=== PATIENT | male | born 1930 | race African-American/Black ===

== ENCOUNTER 2017-01-28 09:40 | Emergency (ER) | payer OTHER ==
[2017-01-28 09:47] VITALS: BP 148/71; PULSE 81; TEMP 98.8; BMI 20.5
--- NOTE | 2017-01-28 11:30 | PDOC ---
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 Patient reports on 12/23/2016 he fell onto right shoulder has been having pain to shoulder since. Unable to sleep last night because of pain. Patient has full use of his arm, uses a walker to walk and is able to manipulate the walker. There is no deformity, no decreased range of motion. There is pain with range of motion. Past History - Past Medical History Allergies/Adverse Reactions: Allergies Allergy/AdvReac Type Severity Reaction Status Date / Time No Known Allergies Allergy Verified 01/28/17 09:47 Home Medications: Ambulatory Orders Amlodipine Besylate [Norvasc -] 10 mg PO DAILY 02/24/14 Lisinopril/Hydrochlorothiazide [Lisinopril-Hctz 20-12.5 mg Tab] 1 each PO DAILY 02/24/14 Metformin HCl 850 mg PO TID 02/24/14 Potassium Chloride 10 meq PO DAILY 02/24/14 Tamsulosin HCl [Flomax] 0.4 mg PO DAILY 02/24/14 Zolpidem Tartrate 5 mg PO HS PRN 02/24/14 Diabetes: Yes HTN: Yes Hypercholesterolemia: Yes Suicide Attempt (Hx): No - Psycho/Social/Smoking Cessation Hx Anxiety: No Suicidal Ideation: No Smoking Status: Yes Smoking History: Never smoked Number of Cigarettes Smoked Daily: 0 Hx Alcohol Use: No Drug/Substance Use Hx: No Substance Use Type: None Hx Substance Use Treatment: No *Physical Exam - Vital Signs Last Vital Signs Temp Pulse Resp BP Pulse Ox 98.8 F 81 20 148/71 95 01/28/17 09:43 01/28/17 09:43 01/28/17 09:43 01/28/17 09:43 01/28/17 09:43 ED Treatment Course - RADIOLOGY Radiology Studies Ordered: Category Date Time Status CLAVICLE-RIGHT SIDE [RAD] Stat Radiology 01/28/17 10:40 Completed HUMERUS-RIGHT [RAD] Stat Radiology 01/28/17 10:40 Completed SHOULDER-RIGHT [RAD] Stat Radiology 01/28/17 10:40 Completed Medical Decision Making - Medical Decision Making 01/28/17 11:33 A/P: Patient here for evaluation of right shoulder pain reports falling December 23 , after initial assessment home health aid came to bedside, she states the patient had the pain prior to this incident and was under the care of his doctor who gave him Naprosyn. Patient states he still has pain with the Naprosyn. Was told to follow-up with orthopedics has not made an appointment. X -ray demonstrates no acute fracture dislocation, clavicle is intact. Called Dr. Chow Spoke to Julia the multimedia production assistant. Patient has appointment tomorrow at 2 PM to follow-up and will be referred to orthopedics and appointment will be set up. Patient to continue taking Naprosyn. I discussed the physical exam findings, ancillary test results and final diagnoses with the patient. I answered all of the patient's questions. The patient was satisfied with the care received and felt comfortable with the discharge plan and treatment plan. The patient will call to arrange follow-up and will return to the Emergency Department with any new, persistent or worsening symptoms. *DC/Admit/Observation/Transfer Diagnosis at time of Disposition: Chronic right shoulder pain - Discharge Dispostion Disposition: HOME Condition at time of disposition: Stable Admit: No - Referrals Referrals: Melissa Chow MD [Primary Care Provider] - (2 pm tomorrow) - Patient Instructions Printed Discharge Instructions: DI for Shoulder Pain
== END 2017-01-28 12:08 | disposition home or self-care (01) ==
LOC: JERFT 09:40
DX: M25.511 Pain in right shoulder (principal); G89.29 Other chronic pain; I10 Essential (primary) hypertension; E11.9 Type 2 diabetes mellitus without complications; Z79.84 Long term (current) use of oral hypoglycemic drugs; E78.00 Pure hypercholesterolemia, unspecified
CPT/HCPCS: 73000-TC-RT; 73030-TC-RT; 73060-TC-RT; 99281-25

== ENCOUNTER 2017-09-07 09:53 | Emergency (ER) | payer OTHER ==
[2017-09-07 09:57] VITALS: BMI 20.9
--- NOTE | 2017-09-07 10:15 | PDOC ---
History of Present Illness - General Chief Complaint: Pain Stated Complaint: CONSTIPATION Time Seen by Provider: 09/07/17 10:02 History Source: Patient Exam Limitations: No Limitations - History of Present Illness Initial Comments: This is an 86 YOM with h/o chronic constipation x6 months who presents with constipation, no BM for the past 12 days, and lower abdominal pain with obstipation for the past 10 days. He has been taking his normal lactulose without relief, but otherwise denies any additional medications for the symptoms. He has been urinating more frequently than normal for the past several days but denies burning on urination, strange colors/smells to the urine , or h/o prostate problems. He denies passing any gas lately, but also denies nausea, vomiting, rectal liquid or blood passage, fever, chills, or other symptoms. He has never had a colonoscopy and has no GI doctor. Past History - Past Medical History Allergies/Adverse Reactions: Allergies Allergy/AdvReac Type Severity Reaction Status Date / Time No Known Allergies Allergy Verified 09/07/17 09:54 Home Medications: Ambulatory Orders Amlodipine Besylate [Norvasc -] 10 mg PO DAILY 02/24/14 Lisinopril/Hydrochlorothiazide [Lisinopril-Hctz 20-12.5 mg Tab] 1 each PO DAILY 02/24/14 Metformin HCl 500 mg PO BID 02/24/14 Tamsulosin HCl [Flomax] 0.4 mg PO DAILY 02/24/14 Atorvastatin Ca [Lipitor] 40 mg PO HS 09/07/17 Buspirone HCl [Buspar -] 1 tab PO DAILY 09/07/17 Duloxetine HCl [Cymbalta -] 20 mg PO BID 09/07/17 Lactulose [Constulose] 10 gm PO DAILY 09/07/17 COPD: No Diabetes: Yes HTN: Yes Hypercholesterolemia: Yes - Immunization History Immunization Up to Date: Yes - Suicide/Smoking/Psychosocial Hx Smoking Status: Yes Smoking History: Never smoked Number of Cigarettes Smoked Daily: 0 Information on smoking cessation initiated: No Hx Alcohol Use: No Drug/Substance Use Hx: No Substance Use Type: None Hx Substance Use Treatment: No Review of Systems - Review of Systems Able to Perform ROS?: Yes Constitutional: No: Chills, Fever, Unexplained wgt Loss HEENTM: No: Nose Congestion, Throat Pain Respiratory: No: Cough, Shortness of Breath Cardiac (ROS): No: Chest Pain, Palpitations ABD/GI: Yes: Constipated, Other (mild lower abdominal pressure, obstipation). No: Diarrhea, Nausea, Vomiting : No: Burning, Dysuria Musculoskeletal: No: Back Pain, Neck Pain Integumentary: No: Bruising, Rash Neurological: No: Headache, Numbness, Tingling, Weakness, Dizziness Endocrine: No: Unexplained Weight Gain, Unexplained Weight Loss *Physical Exam - Vital Signs Last Vital Signs Temp Pulse Resp BP Pulse Ox 98.1 F 72 18 167/82 100 09/07/17 09:55 09/07/17 09:55 09/07/17 09:55 09/07/17 09:55 09/07/17 09:55 - Physical Exam General Appearance: Yes: Nourished, Appropriately Dressed, Other (alert, oriented, appropriately answering Vincentian-speaking gentleman accompanied at bedside by his family member). No: Apparent Distress HEENT: positive: EOMI, Normal Voice, Hearing Grossly Normal. negative: Scleral Icterus (R), Scleral Icterus (L), Nasal Congestion Neck: positive: Trachea midline, Supple. negative: Tender, Rigid Respiratory/Chest: positive: Lungs Clear, Normal Breath Sounds. negative: Respiratory Distress, Crackles, Rhonchi, Stridor, Wheezing Cardiovascular: positive: Regular Rhythm, Regular Rate, Murmur (2/6 systolic ejection). negative: Edema, JVD Gastrointestinal/Abdominal: positive: Normal Bowel Sounds, Tender (mild diffuse lower abdominal tenderness), Soft. negative: Organomegaly, Pulsatile Mass, Guarding Rectal Exam: positive: other (large amount of hard brown stool in the rectal vault, normal rectal tone) Musculoskeletal: positive: Normal Inspection. negative: Decreased Range of Motion, Vertebral Tenderness Extremity: positive: Normal Capillary Refill, Normal Inspection, Normal Range of Motion. negative: Tender, Cyanosis Integumentary: positive: Normal Color, Dry, Warm. negative: Erythema, Rash, Bruising Neurologic: positive: talent solutions manager II-XII NML intact, Fully Oriented, Alert, Normal Mood/ Affect, Normal Response, Motor Strength 5/5 ED Treatment Course - LABORATORY CBC & Chemistry Diagram: 09/07/17 11:00 09/07/17 11:00 Medical Decision Making - Medical Decision Making Elderly patient p/w constipation. VS: Exam: DDX IBNLT: chronic constipation/rectal impaction, medications (e.g. opioids, psychoactive medications), hypercalcemia, hypothyroidism, malignancy, sigmoid volvulus W/U ordered: Abdominal XR CBCD CMP TSH TX ordered: Fleets enema On rectal disimpaction about 16 oz very hard brown stool is is disimpacted, though more is noted farther into the rectum. Patient attempting to use the restroom to defacate. Laboratory Results - last 24 hr 09/07/17 09/07/17 11:00 11:00 WBC 6.1 RBC 3.58 L Hgb 11.1 L Hct 32.6 L MCV 90.9 MCH 31.1 MCHC 34.1 RDW 14.2 Plt Count 191 MPV 8.0 D Neutrophils % 50.1 Lymphocytes % 34.2 Monocytes % 13.3 H Eosinophils % 2.0 Basophils % 0.4 Sodium 141 Potassium 3.5 Chloride 102 Carbon Dioxide 29 Anion Gap 10 BUN 22 H Creatinine 1.1 Creat Clearance w eGFR > 60 Random Glucose 122 H Calcium 9.5 Total Bilirubin 0.6 AST 16 ALT 10 L D Alkaline Phosphatase 75 Total Protein 7.6 Albumin 3.8 Abd XR: large amount of stool thoughout the colon. Patient remains unable to defacate on his own; MiraLax and Milk of Magnesia given here in the ED. Reassessment: Patient states pain has calmed down, repeat abdominal exam benign. He states he wants to go home. Repeat VS: The patient has gotten significant relief of symptoms with ED medications. Workup is not concerning for emergency-level pathology at this time. The patient is appropriate for discharge with close outpatient follow up. GI referral information is given in discharge packet. The family is comfortable with this plan and will follow up with their PCP in 1- 3 days. They will follow up with their PCP in the next 1-3 days. They agree to return to the ED with any new/worsening symptoms. Return precautions are discussed and they will come back to the ER if necessary. *DC/Admit/Observation/Transfer Diagnosis at time of Disposition: Fecal impaction in rectum Constipation Qualifiers: Constipation type: unspecified constipation type Qualified Code(s): K59.00 - Constipation, unspecified Abdominal pain Qualifiers: Abdominal location: unspecified location Qualified Code(s): R10.9 - Unspecified abdominal pain - Discharge Dispostion Condition at time of disposition: Stable Admit: No - Referrals Referrals: Andrea Luciano MD [Staff Physician] - - Patient Instructions Printed Discharge Instructions: DI for Constipation Additional Instructions: Kirkpatrick visto en la kitty de emergencias por estrenimiento. Hicemos unos laboratorios de ирина, shanika placa del abdomen, y shanika enema para ayudar con el estrenimiento. Pearl sintomas se mejoraron mariel la phu en la kitty de emergencias y creemos que ahora tiene que quedarse en el hospital hoy. Por favor michelle jansen lactulose para el estrenimiento. Dimosla informacion para shanika gastroenterologo en esta paquete. Por favor hace shanika phu con erickson doctor, y tambien hace shanika phu con jansen doctor primario. Michelle jansen lactulose, Milk of Magnesia, y MiraLax. Regrese a la kitty de emergencias si tiene algun sintoma nueva o que empeora, shelly mas estrenimiento que no puede controlar con medicamentos, ирина del recto, o dolor muy paul del abdomen. Print Language: RWANDAN - Post Discharge Activity
[2017-09-07] MEDS ORDERED: SODIUM PHOSPHATE/NA BIPHOS 133 ML ENEMA PR ONE (10:41)
[2017-09-07 11:22] LABS: BASO % 0.4 % (0-2.0); HEMATOCRIT 32.6 % (35.4-49); HEMOGLOBIN 11.1 GM/dL (11.7-16.9); LYMPH % 34.2 % (8-40); MCH 31.1 pg (25.7-33.7); MCHC 34.1 g/dl (32.0-35.9); MEAN CELL VOLUME 90.9 fl (80-96); MONO % 13.3 % (3.8-10.2); NEUT % 50.1 % (42.8-82.8); PLATELET COUNT 191 K/MM3 (134-434); RBC 3.58 M/mm3 (4.00-5.60); RDW 14.2 % (11.9-15.9); WHITE BLOOD COUNT 6.1 K/mm3 (4.0-10.0)
[2017-09-07 11:47] LABS: ALBUMIN 3.8 g/dl (3.4-5.0); ALK PHOS 75 U/L (45-117); ANION GAP 10 (8-16); BILIRUBIN,TOTAL 0.6 mg/dL (0.2-1.0); BLOOD UREA NITROGEN 22 mg/dL (7-18); CALCIUM 9.5 mg/dL (8.5-10.1); CHLORIDE 102 mmol/L (98-107); CO2 29 mmol/L (21-32); CREATININE 1.1 mg/dL (0.7-1.3); GLUCOSE,RANDOM 122 mg/dL (74-106); POTASSIUM 3.5 mmol/L (3.5-5.1); SGOT/AST 16 U/L (15-37); SGPT/ALT 10 U/L (12-78); SODIUM 141 mmol/L (136-145); TOT PROT 7.6 g/dl (6.4-8.2)
[2017-09-07] MEDS ORDERED: POLYETHYLENE GLYCOL 3350 119 GM BTL PO ONE (14:16)
[2017-09-07] MEDS ORDERED: MAGNESIUM HYDROX 2400MG/30ML ORAL SUSPENSION 30 ML CUP PO ONE (14:16)
[2017-09-07 15:04] VITALS: BP 144/71; PULSE 71; TEMP 97.9
--- NOTE | 2017-09-07 15:28 | PDOC ---
Attending Attestation - Resident Resident Name: Jennifer Hodge - ED Attending Attestation I have performed the following: I have examined & evaluated the patient, The case was reviewed & discussed with the resident, I agree w/resident's findings & plan, Exceptions are as noted - Physicial Exam PE: 09/07/17 15:22 awake alert lungs clear bilaterally. heart rrr mild systolic murmur, skin warma nd dry. abd soft NT ND. - Medical Decision Making 09/07/17 15:23 86-year-old chronic constipation here with no BM 12 days. Complaining of mild abdominal discomfort has tried several methods at home with no relief takes lactulose and a regular basis. No prior colonoscopy or GI evaluation On exam the patient is with an abdomen that is soft nontender nondistended rectal exam done per resident with large stool in the vault. Differential includes electrolyte abnormality anemia dehydration constipation/ obstipation. Patient was manually disimpacted and felt much improved following is given an enema as well as magnesium citrate and MiraLAX. Feels much improved we'll discharge home given a referral for GI. Electrolytes and CBC were unremarkable <Steff Scherer - Last Filed: 09/07/17 15:22> - HPI HPI: 09/07/17 15:29 The patient is an 86 year old male with a significant PMH of chronic constipation and arthritis who presents to the emergency department with lower abdominal pain and constipation. He describes his abdominal pain as a pressure like sensation localized in the lower quadrants with no radiation, 8/10 in severity. He reports his last bowel movement was approximately 12 days ago. He notes he is also not passing gas. He reports taking Lactulose to no relief. The patient denies nausea or vomiting. He denies fevers or chills. He states he has not received a colonoscopy. Allergies: NKA <Parag Westbrook - Last Filed: 09/07/17 15:29>
== END 2017-09-07 15:13 | disposition home or self-care (01) ==
LOC: JER 09:53
DX: K59.00 Constipation, unspecified (principal); I10 Essential (primary) hypertension; E78.00 Pure hypercholesterolemia, unspecified; E11.9 Type 2 diabetes mellitus without complications; Z79.84 Long term (current) use of oral hypoglycemic drugs
CPT/HCPCS: 36415; 74019-TC-FY; 80053; 84443; 85025; 99283-25

== ENCOUNTER 2019-07-21 21:04 | Observation (INO) | payer OTHER ==
--- NOTE | 2019-07-21 21:14 | PDOC ---
History of Present Illness - General Stated Complaint: FALL Time Seen by Provider: 07/21/19 21:13 Past History - Past Medical History Allergies/Adverse Reactions: Allergies Allergy/AdvReac Type Severity Reaction Status Date / Time No Known Allergies Allergy Verified 07/21/19 21:17 Home Medications: Ambulatory Orders Amlodipine Besylate [Norvasc -] 10 mg PO DAILY 02/24/14 Lisinopril/Hydrochlorothiazide [Lisinopril-Hctz 20-12.5 mg Tab] 1 each PO DAILY 02/24/14 Tamsulosin HCl [Flomax] 0.4 mg PO DAILY 02/24/14 metFORMIN HCL [Metformin HCl] 500 mg PO BID 02/24/14 Atorvastatin Ca [Lipitor] 40 mg PO HS 09/07/17 Buspirone HCl [Buspar -] 1 tab PO DAILY 09/07/17 Duloxetine HCl [Cymbalta -] 20 mg PO BID 09/07/17 Lactulose [Constulose] 10 gm PO DAILY 09/07/17 Anemia: No Asthma: No Cancer: No Cardiac Disorders: No CVA: No COPD: No DVT: No Dementia: No Diabetes: Yes Dialysis: No GI Disorders: Yes (Chronic constipation) Disorders: No HTN: Yes Hypercholesterolemia: Yes Kidney Stones: No Liver Disease: No Psychiatric Problems: Yes Seizures: No Lung CA: No - Surgical History Abdominal Surgery: No Appendectomy: No Cardiac Surgery: No Cholecystectomy: No Gastric Stapling: No GI Surgery: No Lung Surgery: No Neurologic Surgery: No - Immunization History Immunization Up to Date: Yes - Psycho Social/Smoking Cessation Hx Smoking Status: Yes Smoking History: Never smoked Have you smoked in the past 12 months: No Number of Cigarettes Smoked Daily: 0 Hx Alcohol Use: No Drug/Substance Use Hx: No Substance Use Type: None Hx Substance Use Treatment: No ED Treatment Course - LABORATORY CBC & Chemistry Diagram: 07/21/19 22:30 07/21/19 22:30 Medical Decision Making - Medical Decision Making 07/21/19 22:07 HPI: 88yo Serbian-speaking M hx HTN, HLD, DM, and arthritis not on blood thinners or aspirin BIBA for 1 day of feeling unwell, weak, and lightheadedness, and inability to stand, R shoulder pain, and R hip pain s/p unwitnessed fall vs syncope from standing at ~1800 this PM. Pt lives alone at home, CAREER BASED INTERVENTION COORDINATOR 9a-3p daily, walks without assistance. Per family, pt has baseline mild confusion and memory issues, possibly due to dementia, pt is currently at baseline. CAREER BASED INTERVENTION COORDINATOR this AM said pt was pale and had low BP. Pt states he was in [place] yesterday then felt off since waking up this AM, generally weak and lightheaded/dizzy. At ~1800 this PM he believes he was trying to sit down but missed the chair and collapsed to oscar und, endorses LOC, unknown head injury, can't remember if passed out or slipped/fell, just knows was on ground and couldn't get up. Used [facility] alert and EMS brought him here. Endorses chronic R shoulder pain s/p surgery, but worse shoulder pain since fall. Complains of R hip pain but thinks it started at 4pm today prior to fall, but worse after fall. Denies travel, sick contacts, recent illness, prodromal CP or SOB or palpitations or lightheadedness, seizure-like activity, tongue biting, incontinence, fever, chills, headache, numbness/tingling, focal weakness, vision changes, shortness of breath, cough, chest pain, palpitations, leg swelling, abdominal pain, blood in stool, diarrhea, constipation, nausea, vomiting, dysuria, hematuria, confusion. PCP -Geraldo ROS: Constitutional: Positive for generalized weakness. Negative for chills, fever, diaphoresis. HENT: Negative for sore throat, rhinorrhea, congestion. Eyes: Positive for cataracts and chronic difficulty seeing. Negative for new visual disturbance. Respiratory: Negative for shortness of breath, cough, and wheezing. Cardiovascular: Negative for chest pain, palpitations, and leg swelling. Gastrointestinal: Negative for abdominal pain, blood in stool, constipation, diarrhea, nausea, and vomiting. Genitourinary: Negative for dysuria, flank pain, and hematuria. Musculoskeletal: Positive for R shoulder and hip pain. Negative for myalgias, back pain, and neck pain. Skin: Negative for rash. Neurological: Positive for light-headedness, dizziness, ?syncope. Negative for vertigo, weakness, numbness and headaches. Psychiatric/Behavioral: Positive for dementia. Negative for behavioral problems. PE: Gen: Alert, NAD, comfortable-appearing. HEENT: PERRL, EOMI, MMM, NCAT. No conjunctival pallor. Sclera are non-icteric. CV: Regular rate and rhythm. No murmurs, rubs, or gallops. PULM: No resp distress. CTAB, no wheezes, rales, or rhonchi. ABD: soft, NT/ND, no rebound tenderness or guarding, no CVA tenderness. BACK: No TTP of c/t/l-spine. No step-offs or deformities. MSK: No bony deformities. 2+ pulses in all extremities. Pelvis stable and intact. +TTP R hip. +TTP R shoulder. Slightly limited ROM in R shoulder and R hip 2/2 pain. NEURO: AAOx2 (name and hospital only). Doesn't remember event exactly and has some difficulty answering questions and recalling things (baseline per family; presumed dementia). PERRL. CN 2-12 intact. 5/5 strength in all extremities. Sensation to light touch intact in all extremities. No pronator drift. No abnormal nystagmus. EXTREMITIES: No cyanosis. No clubbing. No edema. No calf tenderness. PSYCH: Normal mood and thought pattern. SKIN: Warm and dry. Normal capillary refill. No rashes. No jaundice. MDM: 88yo Serbian-speaking M hx HTN, HLD, DM, and arthritis not on blood thinners or aspirin BIBA for 1 day of feeling unwell, weak, and lightheadedness, and inability to stand, R shoulder pain, and R hip pain s/p unwitnessed fall vs syncope from standing at ~1800 this PM. Hemodynamically stable, afebrile, AAOx2 (name and hospital) and some confusion/dementia but otherwise neurologically intact, +R shoulder and R hip TTP with slight limited ROM in R shoulder and R hip. Ddx: syncope vs mechanical fall vs seizure. Etiology of syncope or seizure ddx includes SAH/ICH, stroke (low concern due to lack of focal neuro deficits), ACS/HI, arrhythmia, thyroid pathology, CHF, infection (UTI, PNA), metabolic derangement, anemia, malignancy. Due to fall and pain to R shoulder and hip, also consider fractures or dislocations - image head, c-spine, shoulder, hip, pelvis, and chest. -radiation monitor -EKG -CXR, XR R shoulder, XR R hip and pelvis -CTH and c-spine -CBC,CMP,Coags,Mg,Phos,Cardiac profile,TSH,UA/UC,T&S,BNP -Pain management -Dispo: pending workup and reassessment, likely admit tele obs syncope 07/21/19 23:17 EKG reviewed: sinus rhythm with 1st degree AV block, 65bpm, RBBB, SD interval 210ms, QTc 434ms, no e/o acute ischemia CXR reviewed: no acute pathology XR R hip and pelvis reviewed: no acute pathology XR R shoulder reviewed: no acute pathology 07/21/19 23:27 Labs reviewed. Notable for Mg 1.7, BUN 26.7, trop neg, TSH 4.65 -Free T3, free T4 -1g Mg -IVF CBC,CMP WBC 9.4 K/mm3 (4.0-10.0) 07/21/19 22:30 RBC 4.25 M/mm3 (4.00-5.60) 07/21/19 22:30 Hgb 12.5 GM/dL (11.7-16.9) 07/21/19 22:30 Hct 38.1 % (35.4-49) D 07/21/19 22:30 MCV 89.5 fl (80-96) 07/21/19 22:30 MCH 29.4 pg (25.7-33.7) 07/21/19 22:30 MCHC 32.8 g/dl (32.0-35.9) 07/21/19 22:30 RDW 16.3 % (11.9-15.9) H 07/21/19 22:30 Plt Count 259 K/MM3 (134-434) D 07/21/19 22:30 MPV 8.9 fl (7.5-11.1) D 07/21/19 22:30 Absolute Neuts (auto) 5.8 K/mm3 (1.5-8.0) 07/21/19 22:30 Neutrophils % 62.5 % (42.8-82.8) D 07/21/19 22:30 Lymphocytes % 26.3 % (8-40) D 07/21/19 22:30 Monocytes % 9.2 % (3.8-10.2) 07/21/19 22:30 Eosinophils % 1.8 % (0-4.5) 03/05/20 22:30 Basophils % 0.2 % (0-2.0) 07/21/19 22:30 Nucleated RBC % 0 % (0-0) 07/21/19 22:30 Sodium 140 mmol/L (136-145) 07/21/19 22:30 Potassium 3.6 mmol/L (3.5-5.1) 07/21/19 22:30 Chloride 105 mmol/L (98-107) 07/21/19 22:30 Carbon Dioxide 28 mmol/L (21-32) 07/21/19 22:30 Anion Gap 7 MMOL/L (8-16) L 07/21/19 22:30 BUN 26.7 mg/dL (7-18) H 07/21/19 22:30 Creatinine 1.3 mg/dL (0.55-1.3) 07/21/19 22:30 Est GFR (CKD-EPI)AfAm 56.07 07/21/19 22:30 Est GFR (CKD-EPI)NonAf 48.38 07/21/19 22:30 POC Glucometer 182 UNITS (80-120) 07/21/19 21:21 Random Glucose 177 mg/dL (74-106) H 07/21/19 22:30 Calcium 10.0 mg/dL (8.5-10.1) 07/21/19 22:30 Phosphorus 2.2 mg/dL (2.5-4.9) L 07/21/19 22:30 Magnesium 1.7 mg/dL (1.8-2.4) L 07/21/19 22:30 Total Bilirubin 0.6 mg/dL (0.2-1) 07/21/19 22:30 AST 17 U/L (15-37) 07/21/19 22:30 ALT 16 U/L (13-61) 07/21/19 22:30 Alkaline Phosphatase 125 U/L (45-117) H 07/21/19 22:30 Creatine Kinase 124 U/L (26-308) 07/21/19 22:30 Troponin I 0.02 ng/ml (0.00-0.05) 07/21/19 22:30 B-Natriuretic Peptide 141.5 pg/ml (5-450) 07/21/19 22:30 Total Protein 9.3 g/dl (6.4-8.2) H 07/21/19 22:30 Albumin 4.2 g/dl (3.4-5.0) 07/21/19 22:30 TSH 4.65 uIU/ml (0.358-3.74) H D 07/21/19 22:30 07/22/19 00:[address] Pt signed out to Dr Garcia. Pending CT reads, admit tele obs syncope under hospitalist. Discharge - Discharge Information Problems reviewed: Yes Clinical Impression/Diagnosis: Syncope and collapse Condition: Stable - Admission Yes - Follow up/Referral Referrals: Melissa Chow MD [Primary Care Provider] - - Patient Discharge Instructions - Post Discharge Activity
[2019-07-21 21:21] VITALS: BMI 24.7
[2019-07-21 22:47] LABS: BASO % 0.2 % (0-2.0); EOS % 1.8 % (0-4.5); HEMATOCRIT 38.1 % (35.4-49); HEMOGLOBIN 12.5 GM/dL (11.7-16.9); LYMPH % 26.3 % (8-40); MCH 29.4 pg (25.7-33.7); MCHC 32.8 g/dl (32.0-35.9); MEAN CELL VOLUME 89.5 fl (80-96); MEAN PLT VOLUME 8.9 fl (7.5-11.1); MONO % 9.2 % (3.8-10.2); NEUT % 62.5 % (42.8-82.8); PLATELET COUNT 259 K/MM3 (134-434); RBC 4.25 M/mm3 (4.00-5.60); RDW 16.3 % (11.9-15.9); WHITE BLOOD COUNT 9.4 K/mm3 (4.0-10.0)
--- NOTE | 2019-07-21 22:50 | PDOC ---
Documentation entered by Zaheer Diane SCRIBE, acting as scribe for Hillary Wu DO. Hillary Wu DO: This documentation has been prepared by the Benedicto marrero Daniel, SCRIBE, under my direction and personally reviewed by me in its entirety. I confirm that the documentation accurately reflects all work, treatment, procedures, and medical decision making performed by me. Attending Attestation - Resident Resident Name: Kaylen Medina - ED Attending Attestation I have performed the following: I have examined & evaluated the patient, The case was reviewed & discussed with the resident, I agree w/resident's findings & plan, Exceptions are as noted - HPI HPI: 07/21/19 21:43 The patient is an 88 year old male with a past medical history of HTN, HLD, diabetes, OA, and dementia here today for evaluation of fall. The patient reports that he doesnt remember the incident exactly but states that at around 6 PM today he went to sit down in a chair, fell, and was unable to get up so he called EMS. He notes right hip and right shoulder pain. Patient denies headache, lightheadedness. Denies fever, chills. Denies chest pain, shortness of breath. Denies nausea, vomiting, diarrhea, abdominal pain. Allergies: NKA PCP: Melissa Chow - Physicial Exam PE: 07/21/19 22:27 Constitutional: Awake, alert, oriented. No acute distress. Head: Normocephalic. Atraumatic Eyes: PERRL. EOMI. Conjunctivae are not pale. ENT: Mucous membranes are moist and intact. Posterior pharynx without exudates or erythema. Uvula midline. Neck: Supple. Full ROM. No lymphadenopathy. Cardiovascular: Regular rate. Regular rhythm. S1, S2 regular. Distal pulses are 2+ and symmetric. Pulmonary/Chest: No evidence of respiratory distress. Clear to auscultation bilaterally No wheezing, rales or rhonchi. Abdominal: Soft and non-distended. There is no tenderness. No rebound, guarding or rigidity. No organomegaly. No palpable masses. Good bowel sounds. Back: No CVA tenderness. Musculoskeletal: +right hip tenderness. No edema. No cyanosis. No clubbing. Full range of motion in all extremities. No calf tenderness. Radial/pedal pulses are intact and 2+ bilaterally Skin: Skin is warm and dry. No petechiae. No purpura. Neurological: Alert and oriented to person, place, and time. Cranial nerves II-XII are grossly intact. Normal speech. Strength is grossly symmetric. No sensory deficits. Psychiatric: Good eye contact. Normal interaction, affect and behavior. - Medical Decision Making 07/21/19 22:48 I, Dr. Hillary Wu, DO, attest that this document has been prepared under my direction and personally reviewed by me in its entirety. I further attest, that it accurately reflects all work, treatment, procedures and medical decision-making performed by me. a/p: 88yo male with an unwitnessed fall at home -unable to get up -denies loc -denies cp/sob/palpitations, no headache, no c/t/l spine ttp -R hip ttp -neuro intact -trace edema to le extremities -will send labs, ekg, cxr, pelvis xray -head ct, c spine ct -will monitor and reassess 07/21/19 23:39 labs reviewed free t4 pending 07/22/19 00:59 CT head: FINDINGS: The vertebral bodies are normal in height and there is straightening noted of the normal cervical lordosis. There is curvature of the cervical spine towards the left and of the imaged upper thoracic spine towards the right. No acute fractures or dislocations. Multilevel degenerative changes along with disc osteophyte complexes, impinging on the spinal canal and resulting in foraminal stenosis. Evaluation of the intraspinal contents admitted on CT scan. Prominent artifact is seen in the spinal canal in the upper thoracic spine. The prevertebral soft tissues are within normal limits. Atherosclerotic calcifications are noted. Thyroid gland obscured by artifacts. Biapical pleural/parenchymal scarring. IMPRESSION: No acute traumatic osseous abnormality. Other findings as above. 07/22/19 00:[address] without acute findings cxr clear pelvic xray without fx old hardware to r shoulder without acute fx 07/22/19 01:[address] Schwab who accepts pt to service Heart Score/ECG Review - ECG Intrepretation Comment:: 07/21/19 22:50 sinus at 65, 1st degree av block, rbbb, abnl ekg
[2019-07-21 23:02] LABS: INR 0.95 (0.83-1.09); PROTHROMBIN TIME (PATIENT) 11.2 SEC (9.7-13.0)
[2019-07-21 23:04] LABS: ACTIVATED PTT 32.5 SECONDS (25.2-36.5)
[2019-07-21 23:13] LABS: EPI CELLS 0.3 /HPF (0-5/HPF); HYALINE CASTS 0 /lpf (0-8); PH,URINE 7.5 (5.0-8.0); URINE APPEARANCE CLEAR; URINE BACTERIA 2.9 /hpf (NEGATIVE); URINE BILIRUBIN NEGATIVE (NEGATIVE); URINE COLOR YELLOW; URINE GLUCOSE (UA) NEGATIVE (NEGATIVE); URINE KETONE NEGATIVE (NEGATIVE); URINE LEUK ESTERASE NEGATIVE (NEGATIVE); URINE NITRITE NEGATIVE (NEGATIVE); URINE PROTEIN 1+ (NEGATIVE); URINE RBC 1 /hpf (0-4); URINE UROBILINOGEN 0.2 mg/dL (0.2-1.0); URINE WBC 0 /hpf (0-5)
[2019-07-21 23:23] LABS: ALBUMIN 4.2 g/dl (3.4-5.0); BILIRUBIN,TOTAL 0.6 mg/dL (0.2-1); BLOOD UREA NITROGEN 26.7 mg/dL (7-18); CREATININE 1.3 mg/dL (0.55-1.3); MAGNESIUM 1.7 mg/dL (1.8-2.4); N-TERMINAL BNP 141.5 pg/ml (5-450); PHOSPHOROUS 2.2 mg/dL (2.5-4.9); POTASSIUM 3.6 mmol/L (3.5-5.1); TOT PROT 9.3 g/dl (6.4-8.2)
[2019-07-21] MEDS ORDERED: ACETAMINOPHEN 1000 MG/100 ML VIAL (NON FORMULARY) IVPB ONE (23:23)
[2019-07-21] MEDS ORDERED: MAGNESIUM SULF 50% (8.12 MEQ/2 ML-1 GM VIAL) IVPB ONE (23:28)
[2019-07-21] MEDS ORDERED: SODIUM CHLORIDE 0.9% 500 ML INFUS.BAG IV ONE (23:28)
[2019-07-22] MEDS ORDERED: MAGNESIUM 1GM/D5W - 1 GM/100 ML IVPB IVPB ONE (00:40)
--- NOTE | 2019-07-22 00:47 | PDOC ---
*Physical Exam - Vital Signs Last Vital Signs Temp Pulse Resp BP Pulse Ox 97.1 F L 62 18 142/69 96 07/21/19 21:17 07/21/19 21:17 07/21/19 21:17 07/21/19 21:17 07/21/19 21:17 ED Treatment Course - LABORATORY CBC & Chemistry Diagram: 07/21/19 22:30 07/22/19 03:10 - ADDITIONAL ORDERS Additional order review: Laboratory Results 07/21/19 07/21/19 07/21/19 22:55 22:30 22:30 PT with INR INR PTT (Actin FS) Sodium 140 Potassium 3.6 Chloride 105 Carbon Dioxide 28 Anion Gap 7 L BUN 26.7 H Creatinine 1.3 Est GFR (CKD-EPI)AfAm 56.07 Est GFR (CKD-EPI)NonAf 48.38 POC Glucometer Random Glucose 177 H Calcium 10.0 Phosphorus 2.2 L Magnesium 1.7 L Total Bilirubin 0.6 AST 17 ALT 16 Alkaline Phosphatase 125 H Creatine Kinase 124 Troponin I 0.02 B-Natriuretic Peptide 141.5 Total Protein 9.3 H Albumin 4.2 TSH 4.65 H D Free T4 1.13 Thyroxine (T4) 12.1 Urine Color Yellow Urine Appearance Clear Urine pH 7.5 D Ur Specific [place] 1.018 Urine Protein 1+ H Urine Glucose (UA) Negative Urine Ketones Negative Urine Blood Negative Urine Nitrite Negative Urine Bilirubin Negative Urine Urobilinogen 0.2 Ur Leukocyte Esterase Negative Urine WBC (Auto) 0 Urine RBC (Auto) 1 Urine Casts (Auto) 0 U Epithel Cells (Auto) 0.3 Urine Bacteria (Auto) 2.9 Blood Type B POSITIVE Antibody Screen Negative 07/21/19 07/21/19 22:30 21:21 PT with INR 11.20 INR 0.95 PTT (Actin FS) 32.5 Sodium Potassium Chloride Carbon Dioxide Anion Gap BUN Creatinine Est GFR (CKD-EPI)AfAm Est GFR (CKD-EPI)NonAf POC Glucometer 182 Random Glucose Calcium Phosphorus Magnesium Total Bilirubin AST ALT Alkaline Phosphatase Creatine Kinase Troponin I B-Natriuretic Peptide Total Protein Albumin TSH Free T4 Thyroxine (T4) Urine Color Urine Appearance Urine pH Ur Specific [place] Urine Protein Urine Glucose (UA) Urine Ketones Urine Blood Urine Nitrite Urine Bilirubin Urine Urobilinogen Ur Leukocyte Esterase Urine WBC (Auto) Urine RBC (Auto) Urine Casts (Auto) U Epithel Cells (Auto) Urine Bacteria (Auto) Blood Type Antibody Screen 07/21/19 07/21/19 22:30 21:21 RBC 4.25 MCV 89.5 MCHC 32.8 RDW 16.3 H MPV 8.9 D Neutrophils % 62.5 D Lymphocytes % 26.3 D Monocytes % 9.2 Eosinophils % 1.8 Basophils % 0.2 POC Glucometer 182 - RADIOLOGY Radiograph Interpretation: THIS IS A PRELIMINARY REPORT FROM [facility] DATE OF SERVICE: 2019-07-22 00:06:09 EXAM: CTCERVICAL SPINE W/O CONTR FINDINGS: The vertebral bodies are normal in height and there is straightening noted of the normal cervical lordosis. There is curvature of the cervical spine towards the left and of the imaged upper thoracic spine towards the right. No acute fractures or dislocations. Multilevel degenerative changes along with disc osteophyte complexes, impinging on the spinal canal and resulting in foraminal stenosis Evaluation of the intraspinal contents admitted on CT scan. Prominent artifact is seen in the spinal canal in the upper thoracic spine. The prevertebral soft tissues are within normal limits. Atherosclerotic calcifications are noted. Thyroid gland obscured by artifacts. Biapical pleural/parenchymal scarring. IMPRESSION: No acute traumatic osseous abnormality. Other findings as above 07/22/19 01:06 Medical Decision Making - Medical Decision Making The pt is an 88M w/ a history of HTN, HLD, DM, and arthritis not on blood thinners or aspirin BIBA for 1 day of feeling unwell, weak, and lightheadedness, and inability to stand, R shoulder pain, and R hip pain s/p unwitnessed fall vs syncope from standing at ~1800 this PM. Pt received as sign out CT head w/o acute bleed Plan for Tele obs for possible syncope Pt signed out to [facility] Admitting 07/22/19 00:47 Discharge - Discharge Information Problems reviewed: Yes Clinical Impression/Diagnosis: Syncope and collapse Condition: Stable - Admission Yes - Follow up/Referral - Patient Discharge Instructions - Post Discharge Activity
--- NOTE | 2019-07-22 02:49 | HP ---
CHIEF COMPLAINT: fall PCP: Dr. Chow HISTORY OF PRESENT ILLNESS: 88 y.o. M PMH HTN, HLD, DM2, BPH, arthritis, dementia, depression, questionable EtOH abuse in the past presenting s/p fall. The patient activated life alert after an unwitnessed fall on his R side at home. 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 Patient did not lose consciousness, did not hit head, did not lose continence, no tongue biting. He is now c/o weakness, R hip and lateral thigh pain. Endorses a history of multiple falls in the past due to gait imbalance. Says he ambulates well with a walker or cane at home although on my exam was extremely unsteady on his feet with myself and nurse helping him stand. States he takes all of his medications daily and eats a normal diet as his home health aid assists with these ADLs. His son has been a good support system for him. ER course was notable for: (1) 1g IV tylenol (2) mag repleted (3) 1L NS Recent Travel: no PAST MEDICAL HISTORY: as per hpi PAST SURGICAL HISTORY: R shoulder hardware Social History: lives alone Smoking: no Alcohol: unclear history Drugs: no Allergies No Known Allergies Allergy (Verified 07/21/19 21:17) HOME MEDICATIONS: Home Medications Medication Instructions Recorded Amlodipine Besylate [Norvasc -] 10 mg PO DAILY 02/24/14 Lisinopril/Hydrochlorothiazide 1 each PO DAILY 02/24/14 [Lisinopril-Hctz 20-12.5 mg Tab] Tamsulosin HCl [Flomax] 0.4 mg PO DAILY 02/24/14 metFORMIN HCL [Metformin HCl] 500 mg PO BID 02/24/14 Atorvastatin Ca [Lipitor] 40 mg PO HS 09/07/17 Buspirone HCl [Buspar -] 1 tab PO DAILY 09/07/17 Duloxetine HCl [Cymbalta -] 20 mg PO BID 09/07/17 Lactulose [Constulose] 10 gm PO DAILY 09/07/17 REVIEW OF SYSTEMS CONSTITUTIONAL: generalized weakness Absent: fever, chills, diaphoresis, malaise, loss of appetite, weight change HEENT: Absent: rhinorrhea, nasal congestion, throat pain, throat swelling, difficulty swallowing, mouth swelling, ear pain, eye pain, visual changes CARDIOVASCULAR: Absent: chest pain, syncope, palpitations, irregular heart rate, lighth eadedness, peripheral edema RESPIRATORY: Absent: cough, shortness of breath, dyspnea with exertion, orthopnea, wheezing, stridor, hemoptysis GASTROINTESTINAL: Absent: abdominal pain, abdominal distension, nausea, vomiting, diarrhea, constipation, melena, hematochezia GENITOURINARY: frequency Absent: dysuria, urgency, hesitancy, hematuria, flank pain, genital pain MUSCULOSKELETAL: Absent: myalgia, arthralgia, joint swelling, back pain, neck pain SKIN: Absent: rash, itching, pallor HEMATOLOGIC/IMMUNOLOGIC: Absent: easy bleeding, easy bruising, lymphadenopathy, frequent infections ENDOCRINE: Absent: unexplained weight gain, unexplained weight loss, heat intolerance, cold intolerance NEUROLOGIC: unsteady gait Absent: headache, focal weakness or paresthesias, dizziness, seizure, mental status changes, bladder or bowel incontinence PSYCHIATRIC: Absent: anxiety, depression, suicidal or homicidal ideation, hallucinations. PHYSICAL EXAMINATION Vital Signs - 24 hr 07/21/19 07/22/19 21:17 02:08 Temperature 97.1 F L Pulse Rate 62 Pulse Rate [ 79 Left Radial] Respiratory 18 18 Rate Blood Pressure 142/69 Blood Pressure 181/69 H [Left Arm] O2 Sat by Pulse 96 Oximetry (%) GENERAL: Fully oriented and alert HEENT: NCAT. PERRLA. MMM LUNGS: Breath sounds equal, clear to auscultation bilaterally. No wheezes, and no crackles. No accessory muscle use. HEART:+ 3/6 holosystolic murmur ABDOMEN: Soft, nontender, not distended, normoactive bowel sounds, no guarding. EXTREMITIES: 2+ pulses, warm, well-perfused. No calf tenderness. No peripheral edema. NEUROLOGICAL: Cranial nerves II-XII intact. PSYCHIATRIC: Appropriate mood and affect. SKIN: Warm, dry, normal turgor, no rashes or lesions noted Laboratory Results - last 24 hr 07/21/19 07/21/19 07/21/19 21:21 22:30 22:30 WBC 9.4 RBC 4.25 Hgb 12.5 Hct 38.1 D MCV 89.5 MCH 29.4 MCHC 32.8 RDW 16.3 H Plt Count 259 D MPV 8.9 D Absolute Neuts (auto) 5.8 Neutrophils % 62.5 D Lymphocytes % 26.3 D Monocytes % 9.2 Eosinophils % 1.8 Basophils % 0.2 Nucleated RBC % 0 PT with INR 11.20 INR 0.95 PTT (Actin FS) 32.5 Sodium Potassium Chloride Carbon Dioxide Anion Gap BUN Creatinine Est GFR (CKD-EPI)AfAm Est GFR (CKD-EPI)NonAf POC Glucometer 182 Random Glucose Calcium Phosphorus Magnesium Total Bilirubin AST ALT Alkaline Phosphatase Creatine Kinase Troponin I B-Natriuretic Peptide Total Protein Albumin TSH Free T4 Thyroxine (T4) Urine Color Urine Appearance Urine pH Ur Specific [place] Urine Protein Urine Glucose (UA) Urine Ketones Urine Blood Urine Nitrite Urine Bilirubin Urine Urobilinogen Ur Leukocyte Esterase Urine WBC (Auto) Urine RBC (Auto) Urine Casts (Auto) U Epithel Cells (Auto) Urine Bacteria (Auto) Blood Type Antibody Screen 07/21/19 07/21/19 07/21/19 22:30 22:30 22:55 WBC RBC Hgb Hct MCV MCH MCHC RDW Plt Count MPV Absolute Neuts (auto) Neutrophils % Lymphocytes % Monocytes % Eosinophils % Basophils % Nucleated RBC % PT with INR INR PTT (Actin FS) Sodium 140 Potassium 3.6 Chloride 105 Carbon Dioxide 28 Anion Gap 7 L BUN 26.7 H Creatinine 1.3 Est GFR (CKD-EPI)AfAm 56.07 Est GFR (CKD-EPI)NonAf 48.38 POC Glucometer Random Glucose 177 H Calcium 10.0 Phosphorus 2.2 L Magnesium 1.7 L Total Bilirubin 0.6 AST 17 ALT 16 Alkaline Phosphatase 125 H Creatine Kinase 124 Troponin I 0.02 B-Natriuretic Peptide 141.5 Total Protein 9.3 H Albumin 4.2 TSH 4.65 H D Free T4 1.13 Thyroxine (T4) 12.1 Urine Color Yellow Urine Appearance Clear Urine pH 7.5 D Ur Specific [place] 1.018 Urine Protein 1+ H Urine Glucose (UA) Negative Urine Ketones Negative Urine Blood Negative Urine Nitrite Negative Urine Bilirubin Negative Urine Urobilinogen 0.2 Ur Leukocyte Esterase Negative Urine WBC (Auto) 0 Urine RBC (Auto) 1 Urine Casts (Auto) 0 U Epithel Cells (Auto) 0.3 Urine Bacteria (Auto) 2.9 Blood Type B POSITIVE Antibody Screen Negative ASSESSMENT/PLAN: 88 y.o. M PMH HTN, HLD, DM2, BPH, arthritis, dementia, depression, questionable EtOH abuse in the past presenting s/p fall. #Fall, likely mechanical, r/o syncopal episode -overnight reads for hip/pelvis/ shoulder XR's negative for fracture-- R shoulder hardware noted -CT c-spine imaging stitch bonding machine tender showing minor foraminal stenosis 2/2 disc osteophytes. Poss contributing to unsteady gait. f/u final read -CT head negative for ICH or fracture, f/u final read -last echo in 2017 showing mild valvular pathologies, normal LVEF. f/u repeat on this visit -EKG showing 1st degree heart block aslo seen on EKG in 2017; new RBBB, qtc 434, no ST/T changes -trop neg x1, f/u repeat -orthostatics difficult to assess 2/2 unsteadiness on feet: supine 156/77; sitting 150/70 could not assess standing -fall precautions -physical therapy requested -cardiac monitoring -holding diuretic (pt is on HCTZ) -IVF NS @75cc/hr #HTN -holding hctz 2/2 fall and electrolyte imbalances -can resume other home BP meds: lisinopril daily, norvasc 20mg daily,coreg 6.25mg bid -increasing lisinopril to 40mg daily as we are holding diuretic -monitoring on tele #DM -f/u HbA1c -holding oral metformin -Insulin sliding scale implemented -BGMs ACHS -continue oxybutynin #RAMU -NS @75cc/hr -renal U/S -urine lytes #Subclinical hypothyroidism -TSH 4.65 elevated; T4 1.13 -repeat TSH in 6 weeks outpatient w/ PCP #Depression -continue mirtazapine 30mg daily, buspirone 10mg daily, cymbalta 20mg PO BID #FEN -gentle hydration -mag & phos repleted; f/u AM mag & phos -diabetic, na controlled diet #DVT PPX -heparin sq #Dispo social work requested, patient may require 24/7 assistance Visit type - Emergency Visit Emergency Visit: Yes ED Registration Date: 07/21/19 Care time: The patient presented to the Emergency Department on the above date and was hospitalized for further evaluation of their emergent condition. - New Patient This patient is new to me today: Yes Date on this admission: 07/22/19 - Critical Care Critical Care patient: No ATTENDING PHYSICIAN STATEMENT I saw and evaluated the patient. I reviewed the resident's note and discussed the case with the resident. I agree with the resident's findings and plan as documented. SUBJECTIVE: OBJECTIVE: ASSESSMENT AND PLAN:
--- NOTE | 2019-07-22 02:57 | PN ---
Teaching Attending Note Name of Resident: Charlene Bell ATTENDING PHYSICIAN STATEMENT I saw and evaluated the patient. I reviewed the resident's note and discussed the case with the resident. I agree with the resident's findings and plan as documented. SUBJECTIVE: 88-year-old male with history of hypertension, dyslipidemia, diabetes mellitus, osteoarthritis, dementia presenting status post fall at his home. Patient does not remember what happened exactly however fell out of chair around 6 PM and was unable to get up so EMS was summoned. Patient reports some right hip pain, there is questionable syncope. Patient has home health aide until 3 PM and then is by himself. It is thought that he is unable to perform his activities of daily living. OBJECTIVE: Last Vital Signs Temp Pulse Resp BP Pulse Ox 97.1 F L 79 18 181/69 H 96 07/21/19 21:17 07/22/19 02:08 07/22/19 02:08 07/22/19 02:08 07/21/19 21:17 On physical exam patient was an elderly male, not in any acute distress. He had a scar over his right shoulder. Posterior aspect of head with mild tenderness and some swelling. No midline tenderness to neck. Cardiovascular exam showed S1, S2, holosystolic murmur. Chest was clear to auscultation bilaterally. Abdomen was soft, nontender. Lower extremities without any tenderness or pedal edema. Abnormal Lab Results 07/21/19 07/21/19 07/21/19 22:30 22:30 22:55 RDW 16.3 H Anion Gap 7 L BUN 26.7 H Random Glucose 177 H Phosphorus 2.2 L Magnesium 1.7 L Alkaline Phosphatase 125 H Total Protein 9.3 H TSH 4.65 H D Urine Protein 1+ H Imaging studies were reviewed, right hip x-ray did not show any evidence of trauma or dislocation or fracture. Right shoulder x-ray with hardware in place and humerus however no fractures were seen. Head CT [place] read was negative for any acute intracranial pathology including fractures or hematomas. Transthoracic echo from 07/2016 reviewedleft ventricular size, thickness, function are normal. Mild mitral regurgitation. Mild tricuspid regurgitation. Right ventricular systolic pressure was normal, moderate aortic regurg. Mild pulmonic valvular regurgitation. ASSESSMENT AND PLAN: 88-year-old male status post fall with questionable syncope. No signs of trauma to exam and preliminary imaging studies were negative for any fractures. Official reads to be followed up. Patient likely requires extended home health aide hours or chcf placement. EKG showed first-degree heart block and right bundle branch block. Falls and unsteadiness likely multifactorial in etiology. Suspect falls may be secondary to intravascular volume depletion from uncontrolled diabetes mellitus as well as possible overzealous diuretic use as he is noted to be on hydrochlorothiazide. Patient may also have peripheral neuropathy versus autonomic neuropathy secondary to longstanding uncontrolled diabetes mellitus which may be contributing to his unsteadiness and frequent falls. Telemetry observation Fall precautions Bedrest Physical therapy evaluation nitro worker Repeat troponin Transthoracic echo Check orthostatics if possible Correct electrolytes including wheezing and phosphate #Uncontrolled diabetes mellitus Send A1c NovoLog sliding scale Gentle IV fluid hydration #Elevated TSHnormal free T4 Would repeat in 6 weeks TSH #Uncontrolled hypertension Would continue with lisinoprilincrease dose to 40 mg and discontinue hydrochlorothiazide Continue with home dose clonidine 10 mg p.o. daily #BPH Continue with Flomax 0.4 mg p.o. daily #DVT prophylaxisheparin subcutaneously
[2019-07-22] MEDS: SODIUM CHLORIDE 1,000 ML IV SCH (03:20)
[2019-07-22] MEDS ORDERED: NAPH,MB-DB/K PH,MBDB POWDER PACKET PO ONE (03:22)
[2019-07-22 03:43] LABS: ANION GAP 8 MMOL/L (8-16); CHLORIDE 106 mmol/L (98-107); CO2 28 mmol/L (21-32); POTASSIUM 3.2 mmol/L (3.5-5.1); SODIUM 142 mmol/L (136-145)
[2019-07-22 03:56] LABS: COCAINE, UR NEGATIVE ng/ml (CUTOFF=300); METHADONE, UR NEGATIVE ng/ml (CUTOFF=300); OPIATES, URI NEGATIVE ng/ml (CUTOFF=300); PHENCYCLIDINE,URINE NEGATIVE ng/ml (CUTOFF=25); URINE AMPHETAMINES NEGATIVE ng/ml (CUTOFF=500); URINE BARBITURATES NEGATIVE ng/ml (CUTOFF=200); URINE BENZODIAZEPINES NEGATIVE ng/ml (CUTOFF=200)
[2019-07-22 06:11] LABS: BASO % 0.4 % (0-2.0); EOS % 1.4 % (0-4.5); HEMATOCRIT 32.3 % (35.4-49); HEMOGLOBIN 10.9 GM/dL (11.7-16.9); LYMPH % 28.2 % (8-40); MCH 29.8 pg (25.7-33.7); MCHC 33.7 g/dl (32.0-35.9); MEAN CELL VOLUME 88.4 fl (80-96); MEAN PLT VOLUME 8.3 fl (7.5-11.1); MONO % 11.9 % (3.8-10.2); NEUT % 58.1 % (42.8-82.8); PLATELET COUNT 225 K/MM3 (134-434); RBC 3.65 M/mm3 (4.00-5.60); RDW 16.4 % (11.9-15.9)
[2019-07-22] MEDS ORDERED: HEPARIN NA (PORCINE) 5,000 UNITS/ML 1ML VIAL ONE (06:13)
[2019-07-22] MEDS: HEPARIN NA (PORCINE) 5,000 UNITS/ML 1ML VIAL SQ SCH ×3 (06:21→22:04)
[2019-07-22 07:19] LABS: ALBUMIN 3.5 g/dl (3.4-5.0); BILIRUBIN,TOTAL 0.5 mg/dL (0.2-1); CALCIUM 9.1 mg/dL (8.5-10.1); CREATININE 0.9 mg/dL (0.55-1.3); MAGNESIUM 1.7 mg/dL (1.8-2.4); PHOSPHOROUS 2.6 mg/dL (2.5-4.9); TOT PROT 7.9 g/dl (6.4-8.2)
[2019-07-22] MEDS ORDERED: MAGNESIUM SULF 50% (8.12 MEQ/2 ML-1 GM VIAL) IVPB ONE (07:52)
[2019-07-22] MEDS: INSULIN SLIDING SCALE (NOVOLOG) 1 VIAL SQ SCH ×4 (08:10→22:03)
--- NOTE | 2019-07-22 08:27 | PDOC ---
ED Treatment Course - LABORATORY CBC & Chemistry Diagram: 07/22/19 05:37 07/22/19 05:37 Medical Decision Making - Medical Decision Making Received call from radiology this AM about overnight CXR - showing right sided lung vs rib lesion at the level of the 3rd rib, has been seen on prior CXR dating back to 2013, but was not commented on, suggest formal rib XR to determine if rib or lung lesion. I communicated this information to Dr. Puri who is currently taking care of the patient. He will follow up. Discharge - Discharge Information Problems reviewed: Yes Clinical Impression/Diagnosis: Syncope and collapse Condition: Stable - Follow up/Referral - Patient Discharge Instructions - Post Discharge Activity
[2019-07-22] MEDS ORDERED: KCL 10 MEQ IVPB 10 MEQ/100 ML INFUS.BAG IVPB ONE (08:46)
[2019-07-22] MEDS ORDERED: MAGNESIUM SULF 50% (8.12 MEQ/2 ML-1 GM VIAL) ONE (08:46)
[2019-07-22] MEDS: CARVEDILOL 6.25 MG TABLET (FP) PO SCH ×2 (09:53→22:04)
[2019-07-22] MEDS: DULoxetine HCL 20 MG CAPSULE.DR PO SCH ×2 (09:53→22:04)
[2019-07-22] MEDS: amLODIPine BESYLATE 10 MG TABLET (FP) PO SCH (09:53)
[2019-07-22] MEDS: busPIRone HCL 10 MG TABLET (FP) PO SCH (09:53)
[2019-07-22] MEDS: KCL 10 MEQ IVPB 10 MEQ/100 ML INFUS.BAG IVPB SCH ×4 (09:53→13:42)
[2019-07-22] MEDS: SOLIFENACIN SUCCINATE 5 MG TAB PO SCH (09:54)
--- NOTE | 2019-07-22 11:06 | EKG ---
Test Reason : Blood Pressure : / mmHG Vent. Rate : 065 BPM Atrial Rate : 065 BPM P-R Int : 232 ms QRS Dur : 136 ms QT Int : 436 ms P-R-T Axes : 044 246 031 degrees QTc Int : 453 ms SINUS RHYTHM WITH 1ST DEGREE A-V BLOCK RIGHT BUNDLE BRANCH BLOCK ABNORMAL ECG WHEN COMPARED WITH ECG OF 21-JUL-2019 21:41, QRS AXIS SHIFTED LEFT T WAVE INVERSION NOW EVIDENT IN LATERAL LEADS Confirmed by RIGOBERTO MOREIRA MD ([id number]) on 07/22/2019 11:06:28 AM Referred By: Confirmed By:RIGOBERTO MOREIRA MD
--- NOTE | 2019-07-22 11:10 | EKG ---
Test Reason : Blood Pressure : / mmHG Vent. Rate : 065 BPM Atrial Rate : 065 BPM P-R Int : 210 ms QRS Dur : 132 ms QT Int : 418 ms P-R-T Axes : 036 -06 013 degrees QTc Int : 434 ms SINUS RHYTHM WITH 1ST DEGREE A-V BLOCK RIGHT BUNDLE BRANCH BLOCK ABNORMAL ECG WHEN COMPARED WITH ECG OF 25-APR-2017 13:58, RIGHT BUNDLE BRANCH BLOCK IS NOW PRESENT Confirmed by HARISH POLK, RIGOBERTO ([id number]) on 07/22/2019 11:09:45 AM Referred By: Confirmed By:RIGOBERTO MOREIRA MD
[2019-07-22] MEDS: LISINOPRIL 20 MG TABLET (FP) PO SCH (11:13)
--- NOTE | 2019-07-22 14:31 | PN ---
Teaching Attending Note Name of Resident: Ana Paula Levine ATTENDING PHYSICIAN STATEMENT I saw and evaluated the patient. I reviewed the resident's note and discussed the case with the resident. I agree with the resident's findings and plan as documented. 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 has pain R thigh, which is old for few months. he has no pain in back or neck. Has no COE . NO N.V . NO SOB . he denies any LOC. but felt dizzy when he stood up due to the R thigh pain. OBJECTIVE: NAD, awake, alert, cooperative HEENT: Nl oropharynx, no facial droop, missing teeth. CV: RRR, 3/6 Systolic and diastolic murmur in base and LLSB . murmur radiates to carotids Lungs: CTAB Abd: soft, NT, ND. Nl BS Ext : No edema or erythema. TTP in R groin. TTP over the R thigh muscles ASSESSMENT AND PLAN: 88 y/o man with h/o hypertension, dyslipidemia, diabetes mellitus, osteoarthritis, dementia and other medical problems who presented after a fall. 1- Fall, most likely mechanical. imbalance and slight volume depletion might be playing a role. - check B 12 - will get CT of R hip to r/o fracture , due to tenderness. xray neg - orthostatic VS neg ( limited though , after IVF ) - PT eval after CT scan. - consider stopping statin, given limited benefit and increased side effects with his life expectancy < 10 yrs . will d/w family 2- Volume depletion: - cont IVF. BUN and Cr improved. 3- h/o DM: cont SSI. hold metformin. 4- HTN: cont Norvasc, coreg, and increase dose of lisinopril . will not resume HCTZ at dc 5- Elevated trop: EKG with L axis and 1st degree. Echo pending. trop elevation is minimal, will trend . If significant elevation , can consult card. start asa . 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 f/u as out p t 8- R 3rd rib density: could be pulm vs rib lesion. f/u as out pt dispo: r/o Fx. give IVF. PT eval. then determine Home with VNS vs Rehab
--- NOTE | 2019-07-22 15:50 | PN ---
Physical Exam: SUBJECTIVE: Patient seen and examined at bedside. pt states that he is having right hip and leg pain . he states its especially worse when he moves his leg. he states the pain gets so bad it makes him dizzy OBJECTIVE: Vital Signs Period Temp Pulse Resp BP Sys/Pat Pulse Ox Last 24 Hr 97.1 F-98 F 62-79 18-18 140-181/65-79 95-98 GENERAL: The patient is awake, alert, and oriented, in no acute distress. HEAD: Normal with no signs of trauma. EYES: PERRL, extraocular movements intact ENT: oropharynx clear without exudates, moist mucous membranes. LUNGS: Breath sounds equal, clear to auscultation bilaterally, no accessory muscle use. HEART: Regular rate and rhythm, S1, S2 + systolic murmur ABDOMEN: Soft, nontender, nondistended, normoactive bowel sounds, no guarding EXTREMITIES: 2+ pulses, warm, well-perfused, no edema. RLE externally rotation SKIN: Warm, dry, normal turgor, no rashes or lesions noted Laboratory Last Values WBC 7.0 K/mm3 (4.0-10.0) 07/22/19 05:37 RBC 3.65 M/mm3 (4.00-5.60) L 07/22/19 05:37 Hgb 10.9 GM/dL (11.7-16.9) L 07/22/19 05:37 Hct 32.3 % (35.4-49) L D 07/22/19 05:37 MCV 88.4 fl (80-96) 07/22/19 05:37 MCH 29.8 pg (25.7-33.7) 07/22/19 05:37 MCHC 33.7 g/dl (32.0-35.9) 07/22/19 05:37 RDW 16.4 % (11.9-15.9) H 07/22/19 05:37 Plt Count 225 K/MM3 (134-434) 07/22/19 05:37 MPV 8.3 fl (7.5-11.1) 07/22/19 05:37 Absolute Neuts (auto) 4.1 K/mm3 (1.5-8.0) 07/22/19 05:37 Neutrophils % 58.1 % (42.8-82.8) 07/22/19 05:37 Lymphocytes % 28.2 % (8-40) 07/22/19 05:37 Monocytes % 11.9 % (3.8-10.2) H 07/22/19 05:37 Eosinophils % 1.4 % (0-4.5) 07/22/19 05:37 Basophils % 0.4 % (0-2.0) 07/22/19 05:37 Nucleated RBC % 0 % (0-0) 07/22/19 05:37 PT with INR 11.20 SEC (9.7-13.0) 07/21/19 22:30 INR 0.95 (0.83-1.09) 07/21/19 22:30 PTT (Actin FS) 32.5 SECONDS (25.2-36.5) 07/21/19 22:30 Sodium 142 mmol/L (136-145) 07/22/19 05:37 Potassium 3.0 mmol/L (3.5-5.1) L 07/22/19 05:37 Chloride 105 mmol/L (98-107) 07/22/19 05:37 Carbon Dioxide 30 mmol/L (21-32) 07/22/19 05:37 Anion Gap 7 MMOL/L (8-16) L 07/22/19 05:37 BUN 19.0 mg/dL (7-18) H 07/22/19 05:37 Creatinine 0.9 mg/dL (0.55-1.3) 07/22/19 05:37 Est GFR (CKD-EPI)AfAm 87.46 07/22/19 05:37 Est GFR (CKD-EPI)NonAf 75.46 07/22/19 05:37 POC Glucometer 180 UNITS (80-120) 07/22/19 16:15 Random Glucose 157 mg/dL (74-106) H 07/22/19 05:37 Hemoglobin A1c % 8.5 % (4.2-6.3) H 07/22/19 05:37 Calcium 9.1 mg/dL (8.5-10.1) 07/22/19 05:37 Phosphorus 2.6 mg/dL (2.5-4.9) 07/22/19 05:37 Magnesium 1.7 mg/dL (1.8-2.4) L 07/22/19 05:37 Total Bilirubin 0.5 mg/dL (0.2-1) 07/22/19 05:37 AST 17 U/L (15-37) 07/22/19 05:37 ALT 14 U/L (13-61) 07/22/19 05:37 Alkaline Phosphatase 109 U/L (45-117) 07/22/19 05:37 Creatine Kinase 165 U/L (26-308) 07/22/19 15:50 Troponin I 0.07 ng/ml (0.00-0.05) H 07/22/19 15:50 Troponin I 0.07 ng/ml (0.00-0.05) H 07/22/19 15:50 B-Natriuretic Peptide 141.5 pg/ml (5-450) 07/21/19 22:30 Total Protein 7.9 g/dl (6.4-8.2) 07/22/19 05:37 Albumin 3.5 g/dl (3.4-5.0) 07/22/19 05:37 Vitamin B12 387 pg/ml (193-986) 07/22/19 10:50 TSH 4.65 uIU/ml (0.358-3.74) H D 07/21/19 22:30 Free T4 1.13 ng/dl (0.76-1.16) 07/21/19 22:30 Thyroxine (T4) 12.1 ug/dl (4.5-13.9) 07/21/19 22:30 Urine Color Yellow 07/21/19 22:55 Urine Appearance Clear 07/21/19 22:55 Urine pH 7.5 (5.0-8.0) D 07/21/19 22:55 Ur Specific [place] 1.018 (1.010-1.035) 07/21/19 22:55 Urine Protein 1+ (NEGATIVE) H 07/21/19 22:55 Urine Glucose (UA) Negative (NEGATIVE) 07/21/19 22:55 Urine Ketones Negative (NEGATIVE) 07/21/19 22:55 Urine Blood Negative (NEGATIVE) 07/21/19 22:55 Urine Nitrite Negative (NEGATIVE) 07/21/19 22:55 Urine Bilirubin Negative (NEGATIVE) 07/21/19 22:55 Urine Urobilinogen 0.2 mg/dL (0.2-1.0) 07/21/19 22:55 Ur Leukocyte Esterase Negative (NEGATIVE) 07/21/19 22:55 Urine WBC (Auto) 0 /hpf (0-5) 07/21/19 22:55 Urine RBC (Auto) 1 /hpf (0-4) 07/21/19 22:55 Urine Casts (Auto) 0 /lpf (0-8) 07/21/19 22:55 U Epithel Cells (Auto) 0.3 /HPF (0-5/HPF) 07/21/19 22:55 Urine Bacteria (Auto) 2.9 /hpf (NEGATIVE) 07/21/19 22:55 Opiates Screen Negative ng/ml (LOXOON=464) 07/22/19 03:10 Methadone Screen Negative ng/ml (DWIHNJ=780) 07/22/19 03:10 Barbiturate Screen Negative ng/ml (HKAIZX=623) 07/22/19 03:10 Phencyclidine Screen Negative ng/ml (CUTOFF=25) 07/22/19 03:10 Ur Amphetamines Screen Negative ng/ml (HKXOUI=850) 07/22/19 03:10 MDMA (Ecstasy) Screen Negative ng/ml (VNXCXJ=639) 07/22/19 03:10 Benzodiazepines Screen Negative ng/ml (IJZKSG=495) 07/22/19 03:10 Cocaine Screen Negative ng/ml (NGRVBT=003) 07/22/19 03:10 U Marijuana (THC) Screen Negative ng/ml (CUTOFF=50) 07/22/19 03:10 Alcohol, Quantitative < 3 mg/dL (0.0-5.0) 07/22/19 05:37 Blood Type B POSITIVE 07/21/19 22:30 Antibody Screen Negative 07/21/19 22:30 Current Medications Amlodipine Besylate (Norvasc -) 10 mg PO DAILY [facility] Last Admin: 07/22/19 09:53 Dose: 10 mg Documented by: Aspirin (Ecotrin -) 81 mg PO DAILY [facility] Atorvastatin Calcium (Lipitor -) 40 mg PO HS [facility] Buspirone HCl (Buspar -) 10 mg PO DAILY [facility] Last Admin: 07/22/19 09:53 Dose: 10 mg Documented by: Carvedilol (Coreg -) 6.25 mg PO BID [facility] Last Admin: 07/22/19 09:53 Dose: 6.25 mg Documented by: Duloxetine HCl (Cymbalta -) 20 mg PO BID [facility] Last Admin: 07/22/19 09:53 Dose: 20 mg Documented by: Heparin Sodium (Porcine) (Heparin -) 5,000 unit SQ TID [facility] Last Admin: 07/22/19 14:07 Dose: 5,000 unit Documented by: Sodium Chloride (Normal Saline -) 1,000 mls @ 75 mls/hr IV ASDIR [facility] Last Admin: 07/22/19 03:20 Dose: 75 mls/hr Documented by: Insulin Aspart (Novolog Vial Sliding Scale -) 1 vial SQ ACHS [facility]; Protocol Last Admin: 07/22/19 12:32 Dose: Not Given Documented by: Latanoprost (Xalatan 0.005% Eye Drops -) 1 drop OU HS [facility] Lisinopril (Prinivil) 40 mg PO DAILY [facility] Last Admin: 07/22/19 11:13 Dose: 40 mg Documented by: Mirtazapine (Remeron -) 30 mg PO HS [facility] Solifenacin (Vesicare -) 10 mg PO DAILY [facility] Last Admin: 07/22/19 09:54 Dose: 10 mg Documented by: CT pelvis: The pelvis and hips demonstrate no CT evidence of fracture. If there is ongoing clinical concern for a possible hip fracture additional evaluation utilizing MRI or skeletal scintigraphy is suggested. No soft tissue hematoma is seen At least moderate colonic fecal retention is noted. 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 Small left renal simple cyst measuring 2.1 cm. No gross renal stones or hydronephrosis are identified, bilaterally CT head: No evidence of acute intracranial hemorrhage, edema, midline shift, mass effect, or skull fracture. Chronic right anterior gangliocapsular infarct unchanged from prior CT with compensatory dilatation of the frontal horn of lateral ventricle. No CT evidence of acute territorial ischemic changes. Cerebral atrophy with moderate supratentorial chronic white matter microangiopathic ischemic changes, gliosis. CT Cspine:Impression. No acute fracture seen. Multilevel facet joint arthropathy, posterior disc osteophyte complex. Minimal degenerative retrolisthesis C4 in relation to C3, C5. R Shoulder XRAY: 3 views of the right shoulder reveal a right shoulder replacement with no sign of fracture or subluxation. There is joint calcification noted. There is a nodular density seen by the right third rib. This is been present in prior studies and could represent a lung lesion or a deformity of the right third rib. Correlation recommended. ASSESSMENT/PLAN: 88 yo M PMH HTN, HLD, DM2, BPH, arthritis, dementia, depression, questionable EtOH abuse in the past presenting s/p fall. Pt fell on his Right side. pt denies LOC Fall - CT pelvis above negative for acute fracture. - XR pelvis negative for fx - CT head negative for acute pathology - Echo : valvular dysfxn , nml EF -trop peaked, 0.07 -no acute tele events - fall precautions - orthostatic negative - PT evaluations HTN -holding hctz 2/2 fall and electrolyte imbalances -can resume other home BP meds: lisinopril daily, norvasc 20mg daily,coreg 6.25mg bid -increasing lisinopril to 40mg daily as we are holding diuretic -monitoring on tele DM -f/u HbA1c -holding oral metformin -Insulin sliding scale implemented, BGMs ACHS -continue oxybutynin Mild tropinemia - will start Asa Chronic gliocapsular infarct -asa RAMU -NS @75cc/hr -renal U/S -urine lytes Subclinical hypothyroidism -TSH 4.65 elevated; T4 1.13 -repeat TSH in 6 weeks outpatient w/ PCP Renal Sinus Lipomatosis - f/u outpt Nodular Density on R 3rd rib f/u outpt Depression -continue mirtazapine 30mg daily, buspirone 10mg daily, cymbalta 20mg PO BID DVT PPX:heparin sq Dispo: PT eval after CT scan Visit type - Emergency Visit Emergency Visit: No - New Patient This patient is new to me today: No - Critical Care Critical Care patient: No - Discharge Referral Referred to [facility] Med P.C.: No ATTENDING PHYSICIAN STATEMENT I saw and evaluated the patient. I reviewed the resident's note and discussed the case with the resident. I agree with the resident's findings and plan as documented. SUBJECTIVE: OBJECTIVE: ASSESSMENT AND PLAN:
[2019-07-22] MEDS ORDERED: PT OWN MED DRAWER 7, Y5N ONE ×2 (18:32→22:13)
[2019-07-22] MEDS ORDERED: DOCUSATE SODIUM 100 MG CAPSULE (FP) PO ONE (21:22)
[2019-07-22] MEDS ORDERED: MIRTAZAPINE 15 MG TABLET (FP) ONE (21:50)
[2019-07-22] MEDS ORDERED: LATANOPROST 0.005% OPHTH SOLN 2.5ML BOTTLE OU SCH (22:00)
[2019-07-22] MEDS ORDERED: ATORVASTATIN CA 40 MG TABLET (FP) PO SCH (22:00)
[2019-07-22] MEDS ORDERED: SENNOSIDES 8.6MG TABLET (FP) PO SCH (22:00)
[2019-07-22] MEDS ORDERED: MIRTAZAPINE 30 MG TABLET (FP) PO SCH (22:00)
[2019-07-23] MEDS: HEPARIN NA (PORCINE) 5,000 UNITS/ML 1ML VIAL SQ SCH ×2 (06:12→13:53)
[2019-07-23] MEDS: INSULIN SLIDING SCALE (NOVOLOG) 1 VIAL SQ SCH ×3 (06:15→16:47)
[2019-07-23 07:40] LABS: BLOOD UREA NITROGEN 13.8 mg/dL (7-18); CALCIUM 9.1 mg/dL (8.5-10.1); CREATININE 0.9 mg/dL (0.55-1.3); MAGNESIUM 1.9 mg/dL (1.8-2.4); PHOSPHOROUS 3.2 mg/dL (2.5-4.9); POTASSIUM 3.3 mmol/L (3.5-5.1)
[2019-07-23] MEDS ORDERED: SENNOSIDES 8.6MG TABLET (FP) PO PRN (07:43)
[2019-07-23] MEDS ORDERED: POTASSIUM CHLORIDE TABS 20 MEQ TABLET.ER (FP) PO ONE (08:30)
[2019-07-23] MEDS ORDERED: PT OWN MED DRAWER 7, Y5N ONE ×2 (09:21→17:58)
[2019-07-23] MEDS: SODIUM CHLORIDE 1,000 ML IV SCH (09:42)
[2019-07-23] MEDS: amLODIPine BESYLATE 10 MG TABLET (FP) PO SCH (09:43)
[2019-07-23] MEDS: CARVEDILOL 6.25 MG TABLET (FP) PO SCH (09:43)
[2019-07-23] MEDS: busPIRone HCL 10 MG TABLET (FP) PO SCH (09:44)
[2019-07-23] MEDS: LISINOPRIL 20 MG TABLET (FP) PO SCH (09:44)
[2019-07-23] MEDS: DULoxetine HCL 20 MG CAPSULE.DR PO SCH (09:45)
[2019-07-23] MEDS: SOLIFENACIN SUCCINATE 5 MG TAB PO SCH (09:46)
[2019-07-23] MEDS ORDERED: LACTULOSE 20 GM/30 ML UDC (FOR ORAL USE ONLY) PO SCH (10:00)
[2019-07-23] MEDS ORDERED: ASPIRIN COATED 81 MG TABLET.EC PO SCH (10:00)
[2019-07-23] MEDS ORDERED: DOCUSATE SODIUM 100 MG CAPSULE (FP) PO SCH (10:00)
--- NOTE | 2019-07-23 14:08 | PN ---
Teaching Attending Note Name of Resident: Nathan Puri ATTENDING PHYSICIAN STATEMENT I saw and evaluated the patient. I reviewed the resident's note and discussed the case with the resident. I agree with the resident's findings and plan as documented. SUBJECTIVE: [employer] Senior Ui Designer, Sharad [id number] was used but patient could not cooperate with it due to being hard of hearing To the resident,Dr. Puri, he expressed no pain in hip and that R thigh pain is still the same ( chronic). he wanted to go home OBJECTIVE: NAD, awake, alert, cooperative HEENT: Nl oropharynx, no facial droop, missing teeth. CV: RRR, 3/6 Systolic and diastolic murmur in base and LLSB . murmur radiates to carotids Lungs: CTAB Abd: soft, NT, ND. Nl BS Ext : No edema or erythema. NO TTP in R groin. tenderness when pinching the R thigh muscles ASSESSMENT AND PLAN: 88 y/o man with h/o hypertension, dyslipidemia, diabetes mellitus, osteoarthritis, dementia and other medical problems who presented after a fall. 1- Fall, most likely mechanical. imbalance and slight volume depletion might be playing a role. - B12 nl - CT of pelvis shows no Fx in R hip. - consider stopping statin after d/w his PCP as out pt 2- Volume depletion: -resolved.BUN/Cr is nl now . dc IVF . 3- H/o DM: at dc resume metformin and start Januvia. A1c 8.3 4- HTN: cont Norvasc, coreg, and increased dose of lisinopril . will not resume HCTZ at dc 5- Elevated trop: EKG with L axis and 1st degree. Echo reviewed. trop elevation is minimal and flat , cont ASA 6- Chronic infarct on CT scan: - ASA 7- Renal cyst and renal lipomatosis. f/u as out p t 8- R 3rd rib density: could be pulm vs rib lesion. f/u as out pt Dc home with VNS . PT eval noted plan to be dw his son by Dr. Puri
--- NOTE | 2019-07-23 14:38 | DS ---
Physical Exam: SUBJECTIVE: Patient seen and examined. No acute complaints. Pt. states that he would like to go home today. He states that he is feeling better and that his pain is decreased. [employer] #[id number] assisted in translation. OBJECTIVE: Vital Signs Period Temp Pulse Resp BP Sys/Pat Pulse Ox Last 24 Hr 98 F-98.6 F 61-71 18-20 140-172/67-82 97-98 PHYSICAL EXAM GENERAL: The patient is awake, alert, and oriented, in no acute distress. HEAD: Normal with no signs of trauma. EYES: PERRL, extraocular movements intact ENT: oropharynx clear without exudates, moist mucous membranes. LUNGS: Breath sounds equal, clear to auscultation bilaterally, no accessory muscle use. HEART: Regular rate and rhythm, S1, S2, systolic and diastolic? murmur ABDOMEN: Soft, nontender, nondistended, normoactive bowel sounds, no guarding EXTREMITIES: 2+ pulses, warm, well-perfused, no edema. RLE slightly externally rotation, mild tenderness to R. thigh, improved from yesterday SKIN: Warm, dry, normal turgor, no rashes or lesions noted LABS Laboratory Results - last 24 hr 07/22/19 07/22/19 07/22/19 15:50 15:50 16:15 Sodium Potassium Chloride Carbon Dioxide Anion Gap BUN Creatinine Est GFR (CKD-EPI)AfAm Est GFR (CKD-EPI)NonAf POC Glucometer 180 Random Glucose Calcium Phosphorus Magnesium Creatine Kinase 165 Creatine Kinase Index 1.2 CK-MB (CK-2) 2.1 Troponin I 0.07 H 0.07 H Vitamin B12 RPR Titer 07/22/19 07/23/19 07/23/19 21:59 05:50 05:50 Sodium 139 Potassium 3.3 L Chloride 102 Carbon Dioxide 29 Anion Gap 8 BUN 13.8 Creatinine 0.9 Est GFR (CKD-EPI)AfAm 87.46 Est GFR (CKD-EPI)NonAf 75.46 POC Glucometer 225 Random Glucose 140 H Calcium 9.1 Phosphorus 3.2 Magnesium 1.9 Creatine Kinase Creatine Kinase Index CK-MB (CK-2) Troponin I 0.08 H Vitamin B12 404 RPR Titer Nonreactive 07/23/19 07/23/19 06:10 11:26 Sodium Potassium Chloride Carbon Dioxide Anion Gap BUN Creatinine Est GFR (CKD-EPI)AfAm Est GFR (CKD-EPI)NonAf POC Glucometer 149 199 Random Glucose Calcium Phosphorus Magnesium Creatine Kinase Creatine Kinase Index CK-MB (CK-2) Troponin I Vitamin B12 RPR Titer HOSPITAL COURSE: Date of Admission:07/21/19 Date of Discharge: 07/23/19 CT pelvis: The pelvis and hips demonstrate no CT evidence of fracture. If there is ongoing clinical concern for a possible hip fracture additional evaluation utilizing MRI or skeletal scintigraphy is suggested. No soft tissue hematoma is seen At least moderate colonic fecal retention is noted. 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 Small left renal simple cyst measuring 2.1 cm. No gross renal stones or hydronephrosis are identified, bilaterally CT head: No evidence of acute intracranial hemorrhage, edema, midline shift, mass effect, or skull fracture. Chronic right anterior gangliocapsular infarct unchanged from prior CT with compensatory dilatation of the frontal horn of lateral ventricle. No CT evidence of acute territorial ischemic changes. Cerebral atrophy with moderate supratentorial chronic white matter micr oangiopathic ischemic changes, gliosis. CT Cspine:Impression. No acute fracture seen. Multilevel facet joint arthropathy, posterior disc osteophyte complex. Minimal degenerative retrolisthesis C4 in relation to C3, C5. R Shoulder XRAY: 3 views of the right shoulder reveal a right shoulder replacement with no sign of fracture or subluxation. There is joint calcification noted. There is a nodular density seen by the right third rib. This is been present in prior studies and could represent a lung lesion or a deformity of the right third rib. Correlation recommended. Pt. is an 88 y.o. M w/ PMhx. of HTN, HLD, DM2, BPH, arthritis, dementia, depression, questionable EtOH abuse in the past presenting s/p fall on his right side. Imaging as noted above. Physical Therapy evaluated the Pt. and he walked 60 feet on day of discharge therefore home PT was requested. Referrals for VNS were sent. A1c was noted to be 8.5. Pt. had uneventful monitoring on telemetry over hospital stay. Orthostatics were negative from supine to sitting. Pt. was unable to do standing prior to IVF administration secondary to pain. Echo showed mild concentric LVH, EF: 60-65%, impaired LV relaxation, mild TR + MR, moderate Aortic sclerosis. Pt. completed physical therapy and was was able to walk more than 50 feet. Hospital course discussed and agreed upon with patient, medical staff and family. Medication adjustments and followup as detailed below. Minutes to complete discharge: 35 Discharge Summary Problems reviewed: Yes Reason For Visit: SYNCOPE AND COLLAPSE Current Active Problems Syncope and collapse (Acute) Condition: Improved - Instructions Diet, Activity, Other Instructions: You were admitted for having a fall. We imaged your head, Pelvis, shoulder and your cervical Spine, we did not find anything immediately wrong. we did on Head imaging that you had chronic areas of decreased blood flow to your brain and changes associated with normal aging. We imaged your kidneys and found that you have a cyst as well as increased fat in your kidneys which can be due to normal aging. We imaged your heart and saw that you have some mild problems with your valves but nothing of immediate concern. We believe that you fell because of weakness in your right leg, which has been going on for a long time. We have made some adjustments to your medications and advise you follow up with your primary care doctor to continue this medications. We have set up visiting nurse services to assist you and help you in physical therapy at home. We checked a blood test to measure how well your Diabetes is controlled and your A1c is 8.5%. This indicates that your diabetes is not well controlled. In the hospital you were evaluated by Physical therapy and even though you walked 60 feet, it was determined that you would benefit from Physical Therapy at home. we have set up services to give you therapy at your home. We have made some changes to your medications: Please STOP taking your combination pill Lisinopril/HCTZ, We believe that the HCTZ can contribute to dizziness and make it more likely for you to fall. We have started you on Lisinopril 40 mg ONCE a day. This is to control your blood pressure. We have started you on Januvia 50mg ONCE a day. This is to better control your diabetes i n addition to your metformin . We have started you on Aspirin 81mg ONCE a day. This is to prevent further damage to your blood vessels in your heart and brain. Please continue taking all your other medications as prescribed Please follow up with you PCP, Dr. Chow, within 1 week. Please have your blood work ( CMP) drawn at this time to monitor your potassium. Please follow up with your Fire Extinguisher Mechanic, Dr. Quach, within 2 weeks, Please discuss having a CXR to monitor a stable(unchanged from years ago to now) lesion that we saw on a chest xray. question rib lesion VS lung lesion. have your primary doctor follow up on the renal changes seen on ultra sound Please return to the ED if you are having chest pain, recurrent falls, difficulty walking, difficulty breathing, or any other new, worsening or concerning symptoms. Referrals: Yousuf Quach MD [Staff Physician] - 1 Week Melissa Chow MD [Primary Care Provider] - 1 Week Disposition: VNS/HOME HEALTH CARE - Home Medications Comprehensive Discharge Medication List: Ambulatory Orders Amlodipine Besylate [Norvasc -] 10 mg PO DAILY 02/24/14 Tamsulosin HCl [Flomax -] 0.4 mg PO DAILY 02/24/14 metFORMIN HCL [Metformin HCl] 500 mg PO BID 02/24/14 Atorvastatin Ca [Lipitor] 40 mg PO HS 09/07/17 Buspirone HCl [Buspar -] 1 tab PO DAILY 09/07/17 Duloxetine HCl [Cymbalta -] 20 mg PO BID 09/07/17 Lactulose [Constulose] 10 gm PO DAILY 09/07/17 Carvedilol 6.25 mg PO BID 07/22/19 Latanoprost 0.005% Eye Drops [Xalatan 0.005% Eye Drops -] 1 drop OU DAILY 07/22/19 Mirtazapine 30 mg PO DAILY 07/22/19 Oxybutynin Chloride [Oxybutynin Chloride ER] 15 mg PO DAILY 07/22/19 Aspirin Coated [Ecotrin -] 81 mg PO DAILY #30 tablet.ec 07/23/19 Lisinopril [Prinivil -] 40 mg PO DAILY #30 tablet 07/23/19 Sitagliptin Phosphate [Januvia] 50 mg PO DAILY #30 tablet 07/23/19 This patient is new to me today: No Emergency Visit: Yes ED Registration Date: 07/21/19 Care time: The patient presented to the Emergency Department on the above date and was hospitalized for further evaluation of their emergent condition. Critical Care patient: No - Discharge Referral Referred to [facility] Med P.C.: No ATTENDING PHYSICIAN STATEMENT I saw and evaluated the patient. I reviewed the resident's note and discussed the case with the resident. I agree with the resident's findings and plan as documented. SUBJECTIVE: OBJECTIVE: ASSESSMENT AND PLAN:
[2019-07-23 16:04] VITALS: PULSE 66
[2019-07-23 18:04] VITALS: BP 153/64; TEMP 98.9
--- NOTE | 2019-07-26 07:45 | ECHO ---
Name: BRITTNEE ROTHMAN Exam:Adult Echocardiogram Study Date: 07/22/2019 11:21 AM Age: 88 yrs Reason For Study: SYNCOPE Height: 62 in Weight: 135 lb BSA: 1.6 m2 MMode/2D Measurements & Calculations IVSd: 1.4 cm Ao root diam: 3.1 cm LVIDd: 3.7 cm LA dimension: 2.8 cm LVIDs: 2.1 cm ACS: 1.4 cm LVPWd: 1.1 cm EDV(Teich): 58.3 ml LVOT diam: 1.8 cm ESV(Teich): 15.1 ml LAV (MOD-bp): 41.0 ml TAPSE: 2.0 cm RV S Angel: 14.6 cm/sec Doppler Measurements & Calculations MV E max angel: 75.0 cm/sec Ao V2 max: 181.0 cm/sec MV A max angel: 110.6 cm/sec Ao max P.1 mmHg MV E/A: 0.68 Ao V2 mean: 112.1 cm/sec MV dec time: 0.37 sec Ao mean P.0 mmHg Ao V2 VTI: 32.8 cm KISHOR(I,D): 1.8 cm2 KISHOR(V,D): 1.4 cm2 LV V1 max P.1 mmHg MR max angel: 575.0 cm/sec LV V1 mean P.2 mmHg MR max P.3 mmHg LV V1 max: 100.7 cm/sec LV V1 mean: 69.1 cm/sec LV V1 VTI: 24.6 cm SV(LVOT): 60.6 ml TR max angel: 226.6 cm/sec TR max P.8 mmHg PA V2 max: 86.9 cm/sec PI end-d angel: 112.7 cm/sec PA max P.0 mmHg PA acc slope: 747.6 cm/sec2 PA acc time: 0.10 sec Med Peak E' Angel: 4.9 cm/sec PA pr(Accel): 36.2 mmHg Med E/e': 15.4 Lat Peak E' Angel: 6.1 cm/sec Lat E/e': 12.2 Tech Comments Suboptimal apical and subcostal views. Left Ventricle There is mild concentric left ventricular hypertrophy. Left ventricular systolic function is normal. Ejection Fraction = 60-65%. The transmitral spectral Doppler flow pattern is suggestive of impaired LV relaxat ion. Right Ventricle The right ventricle is normal in size and function. Atria The left atrium is moderately dilated. Right atrial size is normal. Mitral Valve The mitral valve is normal in structure and function. There is no mitral valve stenosis. There is mil d mitral regurgitation. Tricuspid Valve The tricuspid valve is normal in structure and function. There is mild tricuspid regurgitation. Aortic Valve There is moderate aortic sclerosis.;. No hemodynamically significant valvular aortic stenosis. Mild a ortic regurgitation. Pulmonic Valve The pulmonic valve is not well seen, but is grossly normal. There is no pulmonic valvular stenosis. T race to mild pulmonic valvular regurgitation. Great Vessels The aortic root is normal size. Pericardium/Pleura There is no pericardial effusion. Interpretation Summary There is mild concentric left ventricular hypertrophy. Left ventricular systolic function is normal. The transmitral spectral Doppler flow pattern is suggestive of impaired LV relaxation. The left atrium is moderately dilated. There is mild mitral regurgitation. There is mild tricuspid regurgitation. There is moderate aortic sclerosis.; Mild aortic regurgitation. Ejection Fraction = 60-65%. MD Crisostomo *Lata 07/22/2019 12:57 PM
== END 2019-07-23 19:40 | disposition home health service (06) ==
LOC: JER 21:04 → JERBED 23:17 → J4W 07-22 10:03
PROVIDERS: ADMIT Internal Medicine; ATTEND Internal Medicine
PROC: 3E033NZ Introduction of Analgesics, Hypnotics, Sedatives into Peripheral Vein, Percutaneous Approach (ICD-10-PCS; principal; 2019-07-21)
PROC: 3E0337Z Introduction of Electrolytic and Water Balance Substance into Peripheral Vein, Percutaneous Approach (ICD-10-PCS; 2019-07-21)
PROC: 3E033GC Introduction of Other Therapeutic Substance into Peripheral Vein, Percutaneous Approach (ICD-10-PCS; 2019-07-21)
PROC: 3E013GC Introduction of Other Therapeutic Substance into Subcutaneous Tissue, Percutaneous Approach (ICD-10-PCS; 2019-07-21)
DX: R55 Syncope and collapse (principal); I10 Essential (primary) hypertension; E78.5 Hyperlipidemia, unspecified; E11.9 Type 2 diabetes mellitus without complications; M19.90 Unspecified osteoarthritis, unspecified site; N17.9 Acute kidney failure, unspecified; E03.8 Other specified hypothyroidism; F32.9 Major depressive disorder, single episode, unspecified; N40.0 Benign prostatic hyperplasia without lower urinary tract symptoms; F03.90 Unspecified dementia, unspecified severity, without behavioral disturbance, psychotic disturbance, mood disturbance, and anxiety; E86.9 Volume depletion, unspecified; I44.0 Atrioventricular block, first degree; R77.8 Other specified abnormalities of plasma proteins; E88.2 Lipomatosis, not elsewhere classified; M99.88 Other biomechanical lesions of rib cage; Z79.84 Long term (current) use of oral hypoglycemic drugs; W18.39XA Other fall on same level, initial encounter; Y93.9 Activity, unspecified; Y92.9 Unspecified place or not applicable
CPT/HCPCS: 36415; 70450-TC; 71045-TC-FY; 72125-TC; 72192-TC; 73030-TC-RT-FY; 73523-TC-FY; 76775-TC; 80048; 80051; 80053; 80307; 81003; 82550; 82553; 82607; 82962; 83036; 83735; 83880; 84100; 84436; 84439; 84443; 84481; 84484; 85025; 85610; 85730; 86593; 86850; 86900; 86901; 87086; 93005; 93010; 93306-TC; 96372; 96374; 96375; 96376; 97116-GP; 97161-GP; 99285-25; G0378; J0131; J1644; J7030